=== PATIENT | male | born 1950 | race Caucasian/White ===

== ENCOUNTER 2018-03-13 09:45 | Outpatient (CLI) | payer OTHER, BC, MEDICARE ==
[~2018-03-13] VITALS: Ht 177.8 cm; Wt 122.7 kg
--- NOTE | ~2018-03-13 | HEMODYNAMI ---
PATIENT:CALLUM GARSIA MEDICAL RECORD: [id number] : 54 LOCATION:DA[facility]CAT ADMISSION DATE: 03/13/18 Generatedon:03/13/201811:56 Patient name: CALLUM GARSIA Patient #: [id number] SSN: : 1950 Date of study: 03/13/2018 Page: Of Hemodynamic Procedure Report Patient Data Patient Demographics Procedure consent was obtained First Name: CALLUM Gender: Male Last Name: SUN : 1950 Patient #: [id number] Age: 67 year(s) Race: Unknown Additional ID: [id number] Contact details [address]: [address] [place] [address] State: [place] City: [place] Zip code: [address] Admission Admission Data Admission Date: 03/13/2018 Admission Time: 11:00 Lab Results Lab Result Date: 03/13/2018 Lab Result Time: 0:00 Biochemistry Name Units Result Min Max BUN mg/dl 19 --(----)*- 7 18 Creatinine mg/dl 1 --(--*-)-- 0.6 1.3 CBC Name Units Result Min Max Hemoglobin g/dl 16.5 --(--*-)-- 13.5 17.5 Procedure Procedure Types Cath Procedure Diagnostic Procedure [facility] w/Coronaries FFR/IVUS Intra-Coronary IVUS Initial PCI Procedure Coronary Stent Coronary Stent Initial Procedure Description Procedure Date Procedure Date: 03/13/2018 Procedure Start Time: 11:34 Procedure End Time: 11:53 Procedure Staff Name Function Beto Garcia MD Performing Physician Shaquille Ye RT Monitor Josie Brennan RN Nurse Nakita Watson RT Scrub Procedure Data Cath Procedure Fluoroscopy Diagnostic fluoroscopy Total fluoroscopy Time: 6.7 time: 6.7 min min Diagnostic fluoroscopy Total fluoroscopy dose: dose: 1398 mGy 1398 mGy Contrast Material Contrast Material Type Amount (ml) Isovue 300 110 Entry Location Entry Primary Successful Side Size Upsize Upsize Entry Closure Adorno ccessful Closure Location (Fr) 1 (Fr) 2 (Fr) Remarks Device Remarks Radial Right 6 Fr Mechanical artery Short Compression Diagnostic catheters Device Type Used For End Catheter Placement DIAGNOSTIC Peculiar 110cm 5 LV Angiography Fr catheter ([id number]) Procedure Complications No complications Procedure Medications Medication Administration Route Dosage 0.9% NaCl I.V. 100 ml/hr Oxygen etCO2 Nasal cannula 2 l/min Lidocaine 2% added to field 20 Heparin Flush Bag added to field 2 bags (1000units/500ml NS) Radial Cocktail added to field 1 syringe (Verapomil 2mg/Nitro 400mcg/Heparin 1500units) Versed I.V. 2 mg Fentanyl I.V. 100 mcg Heparin Bolus I.V. 4000 units Versed I.V. 2 mg Versed I.V. 2 mg Hemodynamics Rest HGB: 16.5 (g/dl) Heart Rate: 74 (bpm) Snapshots Pre Cath Intra NCS Post Cath Vital Signs Time Heart Resp SPO2 etCO2 NIBP Rhythm Pain Sedation Rate (ipm) (%) (mmHg) (mmHg) Status Level (bpm) 11:20:36 68 22 98 34 106/62(77) NSR 0 (11) 10(A) , No pain 11:24:52 71 11 96 21.9 121/70(91) NSR 0 (11) 10(A) , No pain 11:29:11 79 11 97 20 118/75(89) NSR 0 (11) 10(A) , No pain 11:33:29 70 12 96 47.6 109/65(84) NSR 0 (11) 10(A) , No pain 11:37:41 80 10 98 30.7 109/71(92) NSR 0 (11) 10(A) , No pain 11:41:54 73 13 97 34.7 114/64(88) NSR 0 (11) 10(A) , No pain 11:46:11 81 13 98 41.5 96/62(89) NSR 0 (11) 9(A) , No pain 11:50:25 90 12 97 43.1 103/59(83) NSR 0 (11) 10(A) , No pain Medications Time Medication Route Dose Verified Delivered Reason Not es Effectiveness by by 11:19:30 0.9% NaCl I.V. 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 2 mg Beto Josie for sedation Jose Brennan RN 11:33:57 Fentanyl I.V. 100 mcg Beto Kwonyla for sedation Jose Brennan RN 11:38:41 Versed I.V. 2 mg Beto Josie for sedation Jose Brennan RN 11:43:55 Heparin Bolus I.V. 4000 Beto Josie for irma ified units Jose Brennan anticoagulation with Dr. MYLA Garcia 11:45:01 Versed I.V. 2 mg Beto Josie for sedation Jose Brennan RN Procedure Log Time Note 11:06:09 Time tracking: Regular hours (M-F 7:00 - 5:00) 11:06:13 Plan of Care:Hemodynamics will remain stable., Cardiac rhythm will remain stable., Comfort level will be maintained., Respiratory function will remain adequate., Patient/ family verbilizes understanding of procedure., Procedure tolerated without complication., Recovers from procedure without complications.. 11:06:18 Josie Brennan RN sent for patient. Start room use. 11:10:53 Patient received from Pre/Post Procedure Room to CCL 1 Alert and oriented. Tansferred to table in Supine position. 11:10:54 Warm blankets applied, and william hugger turned on for patient comfort. 11:10:54 Correct patient and procedure confirmed by team. 11:10:56 Signed procedure consent form obtained from patient. 11:10:57 ECG and BP/O2 sat monitors applied to patient. 11:10:58 Full Disclosure recording started 11:19:21 Vital chart was started 11:19:30 0.9% NaCl 100 ml/hr I.V. was administered by Josie Brennan RN; used for procedure; 11:19:37 Oxygen 2 l/min etCO2 Nasal cannula was administered by Josie Brennan RN; used for procedure; 11:19:43 Lidocaine 2% 20ml vial added to field was administered by Beto Garcia MD; for local anesthetic; 11:19:47 Heparin Flush Bag (1000units/500ml NS) 2 bags added to field was administered by Beto Garcia MD; used for procedure; 11:19:54 Radial Cocktail (Verapomil 2mg/Nitro 400mcg/Heparin 1500units) 1 syringe added to field was administered by Beto Garcia MD; used for procedure; 11:21:42 Baseline sample Acquired. 11:21:45 Rhythm: sinus rhythm 11:25:24 H&P Date Dictated: 03/12/2018 Within 30 days and on chart.. 11:25:26 Pre-procedure instructions explained to patient. 11:25:26 Pre-op teaching completed and patient verbalized understanding. 11:25:28 Family in waiting room. 11:25:29 Patient NPO since Midnight. 11:27:07 Is the patient allergic to Iodine/contrast media? No. 11:27:14 Is patient on blood thinner?Yes 11:27:16 ACC The patient was administered the following blood thiners within the last 24 hours: ACCPlavix 11:27:19 Patient diabetic? No. 11:27:21 ----Pre-sedation anethsthesia assessment.---- 11:27:24 Previous problem with sedation/anesthesia? No ? 11:27:26 Snore? Yes 11:27:27 Sleep apnea? No 11:27:29 Deviated septum? No 11:27:31 Opens mouth fully? Yes 11:27:32 Sticks out tongue? Yes 11:27:34 Airway obstruction? No ? 11:27:36 Dentures? No ? 11:27:43 Pre procedure: right dorsailis pedis pulse 1+ Palpable, but thready & weak; easily obliterated 11:27:47 Modified Jose's test Ulnar < 7 seconds 11:27:50 Patient pain scale 0/10 ?. 11:28:05 IV patent on arrival in left hand with 0.9% NaCl at 10ml/hr. 11:32:35 Lab Result : BUN 19 mg/dl 11:32:35 Lab Result : Hemoglobin 16.5 g/dl 11:32:35 Lab Result : Creatinine 1 mg/dl 11:32:39 Zero performed for pressure channel P1 11:32:46 Zero performed for pressure channel P1 11:32:58 Lab results completed and on chart. 11:33:01 Right Radial & Right Groin area was prepped with chlora-prep and draped in sterile fashion 11:33:02 Alarms reviewed by R. N. 11:33:03 Sharps counted by scrub and verified by R.N. 11:33:04 Physician arrived 11:33:05 --------ALL STOP TIME OUT------ 11:33:05 Final Timeout: patient, procedure, and site verified with staff and physician. All members of the team are in agreement. 11:33:07 Right Radial & Right Groin site verified by team. 11:33:10 Physical assessment completed. ASA score P 2 - A patient with mild systemic disease as per Beto Garcia MD. 11:33:14 Sedation plan: IV Moderate Sedation Medication:Versed, Fentanyl 11:33:18 Use device set Radial Dx or PCI 11:33:19 ACIST Syringe (63420) opened to sterile field. 11:33:19 Medline Cath Pack ([id number]) opened to sterile field. 11:33:20 Bag Decanter (2002) opened to sterile field. 11:33:20 DIAGNOSTIC WIRE .035 260cm J wire (199263) opened to sterile field. 11:33:21 ACIST Hand Control (81165) opened to sterile field. 11:33:21 ACIST Manifold (69531) opened to sterile field. 11:33:22 Tegaderm 4 x 4 (1626W) opened to sterile field. 11:33:22 MBrace Wrist Support ([id number]) opened to sterile field. 11:33:26 SHEATH 6FR Slender (83-5392) opened to sterile field. 11:33:50 Versed 2 mg I.V. was administered by Josie Brennan RN; for sedation; 11:33:57 Fentanyl 100 mcg I.V. was administered by Josie Brennan RN; for sedation; 11:34:00 Procedure started. 11:34:12 Local anesthetic to right radial artery with Lidocaine 2% by Beto Garcia MD.INITIAL ACCESS ONLY 11:34:21 A 6 Fr Short sheath was inserted into the Right Radial artery 11:34:32 A DIAGNOSTIC Peculiar 110cm 5 Fr catheter (288085) was advanced over the wire and used for LV Angiography. 11:34:35 LV angiography performed. 11:34:37 LV gram done using BETTENCOURT 11:34:47 LV hemodynamics recorded. 11:34:54 EF : 60 % 11:35:06 LCA angiography performed. 11:35:52 Catheter removed. 11:36:00 GUIDE 6FR XB 3.5 catheter ([id number]) opened to sterile field. 11:37:29 GUIDE 6FR AR 2.0 catheter (OE6BX89) opened to sterile field. 11:37:37 6 Fr AR 2 guide catheter was inserted over the wire 11:37:42 RCA angiography performed. 11:38:27 Catheter removed. 11:38:39 6 Fr XB 3.5 guide catheter was inserted over the wire 11:38:41 Versed 2 mg I.V. was administered by Josie Brennan RN; for sedation; 11:38:46 LCA angiography performed. 11:39:40 CHOICE PT Extra Support 182cm wire ([id number]) opened to sterile field. 11:39:46 INFLATOR Merit BasixCompak (TT2616) opened to sterile field. 11:43:23 CPTES wire advanced. 11:43:27 FFR/IVUS 11:43:27 IVUS catheter advanced over wire. 11:43:30 IVUS pass to Circ lesion performed. 11:43:46 Procedure type changed to Cath procedure, Diagnostic procedure, LHC, LHC w/Coronaries, FFR/IVUS, Intra-Coronary IVUS Initial, PCI procedure, Coronary Stent, Coronary Stent Initial 11:43:55 Heparin Bolus 4000 units I.V. was administered by Josie Brennan RN; for anticoagulation; verified with Dr. Garcia 11:45:01 Versed 2 mg I.V. was administered by Josie Brennan RN; for sedation; 11:49:04 IVUS catheter removed over wire. 11:50:14 Place stent Inflation Number: 1 A INTEGRITY RX 3.5 x 18 stent ([id number]) was prepped and advanced across the Mid CX. The stent was deployed at 15 PHILOMENA for 0:11 (min:sec). 11:50:30 Stent catheter was removed intact over wire. 11:50:32 Wire removed. 11:50:35 Guide catheter removed. 11:50:41 TR BAND Large ([id number]) opened to sterile field. 11:51:54 Sheath removed intact; hemostasis achieved with Mechanical Compression to the Right Radial artery. 11:51:56 Procedure ended.(Physican Out) 11:52:06 Fluoroscopy time 06.70 minutes. 11:52:12 Fluoroscopy dose: 1398 mGy 11:52:12 Flurop Dose total: 1398 11:52:14 Sharps counted by scrub and verified by R.N. 11:52:17 TR band inflated with 13cc of air. 11:52:19 Insertion/operative site no bleeding no hematoma. 11:52:41 Post procedure rhythm: sinus rhythm 11:52:49 Contrast amount:Isovue 300 110ml. 11:52:52 Procedure and supply charges have been captured, reviewed, submitted and are correct. 11:53:12 [place] Iliamna Eagleye IVUS Catheter (71999N) opened to sterile field. 11:53:40 Procedure Complication : No complications 11:53:42 Vital chart was stopped 11:53:43 See physician's report for complete and final results. 11:53:46 Report given to Pre/Post Procedure Room. 11:53:49 Patient transfered to Pre/Post Procedure Room with Stretcher. 11:53:51 Procedure ended. 11:53:51 Full Disclosure recording stopped 11:53:59 ACC-PCI Only Patient was given prescriptions, or instructed by Beto Garcia MD to start/continue the following medications upon discharge: Plavix 11:54:00 End room use (Document Last) Intervention Summary Intervention Notes Time ActionType Lesion and Equipment Action# Pressure Duration Attributes Used 11:50:14 Place stent Mid CX INTEGRITY RX 1 15 00:11 3.5 x 18 stent ([id number]) Device Usage Item Name Manufacture Quantity Catalog Number Hospital Part Current Mini mal Lot# / Charge Number Stock Stock Serial# Code [place] [address] 56400 568367 208015 059834 20 Syringe Medical (03037) Systems Inc Medline Cath Medline 1 [id number] 755260 92935 221027 5 Pack ([id number]) Bag Decanter Microtek 1 2001S 680792 93810 361067 5 () Medical Inc. DIAGNOSTIC [place] 1 248275 100215 645160 118980 30 WIRE .035 260cm J wire (948514) ACIST Hand Acist 1 24634 098040 209882 714844 5 Control Medical (68270) Systems Inc ACIST Acist 1 09252 937110 894394 460404 5 Manifold Medical (23163) Systems Inc Tegaderm 4 x 3M 1 1626W 727451 546553 209685 5 4 (1626W) MBrace Wrist Advanced 1 140-0250-00 940574 73915 622183 5 Support Vascular (525793874) Dynamics SHEATH 6FR Terumo 1 [id number] 967251 496143 313911 5 Slender (80-1060) DIAGNOSTIC Terumo 1 40-5013 023226 890041 960500 5 Peculiar 110cm 5 Fr catheter (485114) GUIDE 6FR XB Cardinal 1 [id number] 363465 476551 687195 2 3.5 catheter Health (02709973) GUIDE 6FR AR Medtronic 1 [id number] 690678 36293 752740 1 2.0 catheter (ZQ4QN74) CHOICE PT [place] 1 [id number] 865676 213540 842104 5 Extra Scientific Support 182cm wire ([id number]) INFLATOR Merit 1 IZ5457 042589 548567 904629 15 [facility] Medical BasixCompak (BS5913) INTEGRITY RX Medtronic 1 [id number] 825455 931240 338306 5 [id number] 3.5 x 18 stent ([id number]) TR BAND Terumo 1 [id number] 363939 958723 445012 40 Large ([id number]) [place] 1 71240C 301972 366920 509844 8 Iliamna Eagleye IVUS Catheter (80176S) Signature Audit [place] Stage Time Signature Unsigned Intra-Procedure 03/13/2018 Shaquille ARANGO(Arielle) 11:56:30 AM Signatures Monitor : Shaquille Ye RT Signature : Date : Time : [place] [address] [place] [address]
--- NOTE | ~2018-03-13 | OP ---
PATIENT NAME: CALLUM GARSIA MEDICAL RECORD: [id number] :54 LOCATION:D.CAT ADMISSION DATE: SURGEON: BRONSON WELSH MD DATE OF OPERATION: 03/13/2018 DATE OF SERVICE: 03/13/2018 PROCEDURES: 1. PTCA stent of left circumflex. 2. Intravascular ultrasound of left circumflex. 3. Left heart catheterization. 4. Selective coronary angiography. 5. Left ventriculogram. INDICATION: Angina and coronary artery disease. PROCEDURE IN DETAIL: After informed consent was obtained and after detailed explanation of risks, benefits as well as alternative therapies, the patient elected to proceed with angiogram and angioplasty. The right radial area was prepped and draped in normal sterile fashion. Right radial artery was cannulated via modified Seldinger technique with placement of 6-Faroese sheath. All catheters exchanged through this sheath. FINDINGS: Left ventriculogram was performed in standard 30-degree BETTENCOURT view, reveals good cardiac wall motion throughout all segments. Overall ejection fraction estimated at 60%. SELECTIVE CORONARY ANGIOGRAPHY: 1. Left main is with no significant angiographic disease. 2. Left anterior descending has long areas of bridging, but minimal fixed obstructive disease. 3. The left circumflex has greater than 80% stenosis confirmed by intravascular ultrasound proximally. 4. Right coronary has greater than 80% stenosis in the mid distal vessel. PTCA STENT OF THE LEFT CIRCUMFLEX: The stent used was a 3.5 x 18 mm Integrity. Result was 0% residual stenosis. OVERALL IMPRESSION: Successful percutaneous transluminal coronary angioplasty stent of the left circumflex going from over 80% initial stenosis to 0% residual. PLAN: PTCA stent of the RCA in the near future. TRANSINT:[id number] Voice Confirmation ID: [id number] DOCUMENT ID: [id number] BRONSON WELSH MD at 1228 CC: [id number] DICTATION DATE: 03/13/18 1154 TISSUE COORDINATOR: 03/13/18 1333 DEP CLI 03/13/18 [place] [id number]
[2018-03-13] MEDS ORDERED: PLAVIX75 MG PO (09:50)
[2018-03-13] MEDS ORDERED: PRINZIDE 20/12.1 TA1 PO (09:51)
[2018-03-13] MEDS ORDERED: NIASPAN500 MG PO (09:52)
[2018-03-13] MEDS ORDERED: GLUCOSAMINE HC500 MG PO (09:53)
[2018-03-13] MEDS ORDERED: FISH OIL 1,0001 CA1 PO (09:53)
[2018-03-13 10:04] VITALS: BP 127/74; Ht 177.8 cm; Wt 122.7 kg
[2018-03-13 10:20] LABS: BASOPHILS 0.2 % (0-2); CALC OSMOLALITY 279 mosm/kg (275-300); CALCIUM 9.9 mg/dL (8.5-10.1); CARBON DIOXIDE 27.9 mmol/L (21.0-32.0); CHLORIDE - SERUM 101 mmol/L (98-107); EOSINOPHILS 3.3 % (0-7); GLUCOSE 127 mg/dL (74-106); HEMATOCRIT 47.4 % (42.0-54.0); HEMOGLOBIN 16.5 g/dL (13.5-17.5); IMMATURE GRANULOCYTES 0.2 % (0-5); LYMPHOCYTES 23.7 % (15-50); MCH 31.4 pg (26.0-34.0); MCHC 34.8 g/dL (31.0-37.0); MCV 90.1 fL (80.0-100.0); MEAN PLATELET VOLUME 9.7 fL (7.4-10.4); MONOCYTES 8.7 % (2-11); NEUTROPHILS 63.9 % (40-80); PLATELET COUNT 215 10x3/uL (130-400); POTASSIUM - SERUM 4.1 mmol/L (3.5-5.1); RBC 5.26 10x6/uL (4.20-6.10); RDW 13.7 % (11.5-14.5); SODIUM 138 mmol/L (136-145); UREA NITROGEN 19 mg/dL (7-18); WBC 8.2 10x3/uL (4.8-10.8); eGFR NON AFRICAN AMERICAN 80 mL/min (90-120)
[2018-03-13] MEDS ORDERED: BAYER CHEWABLE81 MG PO (12:10)
== END 2018-03-13 16:00 ==
LOC: D.CATH 09:45
PROVIDERS: Internal Medicine Interventional Cardiology
DX: I25.119 Atherosclerotic heart disease of native coronary artery with unspecified angina pectoris (principal); Z01.812 Encounter for preprocedural laboratory examination

== ENCOUNTER → 2018-03-16 06:56 | Outpatient (CLI) | payer OTHER, BC ==
[~2018-03-16] VITALS: Ht 177.8 cm; Wt 122.7 kg
--- NOTE | ~2018-03-16 | HP ---
PATIENT: CALLUM AMARAL MEDICAL RECORD: [id number] ACCOUNT: [id number] LOCATION:EVAN : 54 ADMISSION DATE: 03/16/18 PCP: GAIL POZO HISTORY AND PHYSICAL EXAMINATION ADMITTING DIAGNOSES: 1. Angina. 2. Coronary artery disease. 3. PTCA and stent to LAD with concomitant disease of RCA. 4. Hypertension. 5. Hyperlipidemia. HISTORY OF PRESENT ILLNESS: Mr. Amaral presents with anginal symptomatology, found to have 2-vessel coronary artery disease. Underwent successful PTCA and stent of the LAD. He is now brought back for PTCA and stent of the RCA. REVIEW OF SYSTEMS: The patient reports easy bruising but reports no swollen glands. The patient reports no fever, no night sweats, no significant weight gain, no significant weight loss. No significant exercise tolerance. The patient reports no dry eyes, no irritation, no vision change. Patient reports no difficulty hearing and no ear pain. Patient reports no frequent nose bleeds or nose and sinus problems. Patient reports on arm pain on exertion. No shortness of breath while lying down. No history of heart murmur. Patient reports no cough, no wheezing or coughing up blood. Patient reports no abdominal pain, no vomiting. Normal appetite. No diarrhea and not vomiting blood. No nausea and no constipation. Patient reports no incontinence. No difficulty urinating. No hematuria. No increased frequency. Patient reports no muscle aches. No weakness, no arthralgias, no back pain. No swelling of the extremities. Patient reports no abnormal mole, no jaundice, no rashes. Reports no loss of consciousness. No weakness and no numbness. No seizures, dizziness, or headaches. The patient reports no depression, no sleep disturbance, feeling safe in a relationship and no alcohol abuse. Patient reports on fatigue. Reports no runny nose or sinus pressure. No itching, no hives, and no frequent sneezing. PHYSICAL EXAMINATION: GENERAL APPEARANCE: Well-nourished, well-developed, appears stated age. Level of distress, comfortable. PSYCHIATRIC: Mental status, alert, normal affect. Orientation, oriented to time, place and person. EYES: Lids and conjunctiva, noninjected. No discharge, no pallor. ENT: Lips, teeth, gums, normal dentition. Oropharynx, no cyanosis, no pallor. NECK: Carotid arteries, bilateral normal upstroke, no bruits, no thrills. JUGULAR VEINS: No jugular venous pressure or distention. CERVICAL LYMPH NODES: Nontender, nonenlarged. THYROID: Not enlarged. Nontender. No nodules. LUNGS: Respiratory effort, unlabored. CHEST: Normal curvature. No thoracic deformity. No chest wall tenderness. Percussion, resonant. Auscultation, clear. No wheezes, no rales, no rhonchi. CARDIOVASCULAR: Precordial exam, nondisplaced. No heaves or pericardial thrills. Rate and rhythm, regular. Heart sounds, normal S1, normal S2. No S3, no gallop, no rub. Systolic murmur, not heard. Diastolic murmur, not heard. EXTREMITIES: No cyanosis, no edema. Peripheral pulses, full and equal in all extremities, except as noted. No bruits appreciated. ABDOMEN: Soft, nondistended. Normal aorta. No bruit. Nontender. No masses. HISTORY AND PHYSICAL [id number] AMARAL,CALLUM Liver, nontender, no hepatomegaly. Spleen, nontender, no splenomegaly. MUSCULOSKELETAL: No joint tenderness. No joint swelling. No erythema. NEUROLOGICAL: Normal gait, normal strength, normal tone. SKIN: Warm and dry. OVERALL IMPRESSION: Anginal symptomatology with significant disease of the RCA. We will proceed with transcatheter revascularization of the RCA. TRANSINT:[id number] Voice Confirmation ID: [id number] DOCUMENT ID: [id number] BRONSON WELSH MD at 0941 CC: [id number] DICTATION DATE: 03/16/18913 ENVIRONMENTAL ADVISOR: 03/16/18922 [facility] [address] [place] [address]
--- NOTE | ~2018-03-16 | HEMODYNAMI ---
PATIENT:CALLUM GARSIA MEDICAL RECORD: [id number] : 54 LOCATION:D.CAT ADMISSION DATE: 03/16/18 Generatedon:03/16/20189:22 Patient name: CALLUM GARSIA Patient #: [id number] SSN: : 1950 Date of study: 03/16/2018 Page: Of Hemodynamic Procedure Report Patient Data Patient Demographics Procedure consent was obtained First Name: CALLUM Gender: Male Last Name: SUN : 1950 Patient #: [id number] Age: 67 year(s) Race: Unknown Additional ID: [id number] Contact details [address]: [address] [place] [address] State: [place] City: [place] Zip code: [address] Admission Admission Data Admission Date: 03/16/2018 Admission Time: 6:56 Weight (lbs.): 271.17 Weight (kg.): 123 Lab Results Lab Result Date: 03/16/2018 Lab Result Time: 0:00 Biochemistry Name Units Result Min Max BUN mg/dl 19 --(----)*- 7 18 Creatinine mg/dl 1.2 --(---*)-- 0.6 1.3 CBC Name Units Result Min Max Hemoglobin g/dl 17.3 --(---*)-- 13.5 17.5 Platelets 10^3/l 224 --(-*--)-- 130 400 Procedure Procedure Types Cath Procedure PCI Procedure Coronary Stent Coronary Stent Initial Procedure Description Procedure Date Procedure Date: 03/16/2018 Procedure Start Time: 9:06 Procedure End Time: 9:19 Procedure Staff Name Function Beto Garcia MD Performing Physician Jose Siddiqui RT Monitor Feroz Flor RN Nurse Shaquille Ye RT Scrub Procedure Data Cath Procedure Fluoroscopy Diagnostic fluoroscopy Total fluoroscopy Time: 2.2 time: 2.2 min min Diagnostic fluoroscopy Total fluoroscopy dose: 138 dose: 138 mGy mGy Contrast Material Contrast Material Type Amount (ml) Isovue 300 61 Entry Location Entry Primary Successful Side Size Upsize Upsize Entry Closure Succes sful Closure Location (Fr) 1 (Fr) 2 (Fr) Remarks Device Remarks Femoral Right 6 Fr Exoseal artery Short Estimated blood loss: 10 ml Procedure Complications No complications Procedure Medications Medication Administration Route Dosage Oxygen etCO2 Nasal cannula 2 l/min Heparin Flush Bag added to field 2 bags (1000units/500ml NS) 0.9% NaCl I.V. 100 ml/hr Fentanyl I.V. 50 mcg Versed I.V. 1 mg Fentanyl I.V. 50 mcg Versed I.V. 1 mg Heparin Bolus I.V. 4000 units Fentanyl I.V. 50 mcg Fentanyl I.V. 50 mcg Hemodynamics Rest HGB: 17.3 (g/dl) Heart Rate: 80 (bpm) Snapshots Pre Cath Intra NCS Post Cath Vital Signs Time Heart Resp SPO2 etCO2 NIBP (mmHg) Rhythm Pain Sedation Rate (ipm) (%) (mmHg) Status Level (bpm) 8:30:49 73 17 97 0 123/74(100) NSR 0 (11) 10(A) , No pain 8:35:03 73 17 95 0 119/80(91) NSR 0 (11) 10(A) , No pain 8:39:17 73 17 94 0 118/78(95) NSR 0 (11) 10(A) , No pain 8:43:31 70 17 97 8.9 122/73(87) NSR 0 (11) 10(A) , No pain 8:47:45 73 16 97 7.4 120/73(91) NSR 0 (11) 10(A) , No pain 8:52:01 70 16 97 11.9 118/74(91) NSR 0 (11) 10(A) , No pain 8:56:15 71 16 97 14.9 114/70(90) NSR 0 (11) 10(A) , No pain 9:00:27 69 16 97 12.6 115/76(90) NSR 0 (11) 10(A) , No pain 9:04:39 70 16 96 17.1 126/75(90) NSR 0 (11) 10(A) , No pain 9:08:52 66 16 96 16.4 116/70(92) NSR 0 (11) 9(A) , No pain 9:13:07 65 16 98 14.1 109/70(85) NSR 0 (11) 9(A) , No pain Medications Time Medication Route Dose Verified Delivered Reason Notes Effectiveness by by 8:40:40 Oxygen etCO2 2 Beto Mclainy Per physician Nasal l/min Jose Flor RN cannula 8:40:49 Heparin Flush added 2 Beto Redman used for Bag to bags Jose Flor RN procedure (1000units/500ml field NS) 8:40:58 0.9% NaCl I.V. 100 Beto Feroz Per physician ml/hr Jose Flor RN 9:03:18 Fentanyl I.V. 50 Beto Feroz for sedation mcg Jose Flor RN 9:03:31 Versed I.V. 1 mg Beto Feroz for sedation Jose Flor RN 9:04:57 Fentanyl I.V. 50 Beto Feroz for sedation mcg Jose Flor RN 9:05:03 Versed I.V. 1 mg Beto Feroz for sedation Jose Flor RN 9:08:24 Heparin Bolus I.V. 4000 Beto Feroz for units Jose Flor RN anticoagulation 9:08:28 Fentanyl I.V. 50 Beto Feroz for sedation mcg Jose Flor RN 9:10:32 Fentanyl I.V. 50 Beto Feroz for sedation mcg Jose Flor RN Procedure Log Time Note 8:15:07 Shaquille Ye RT(R) sent for patient. Start room use. 8:21:09 Time tracking: Regular hours (M-F 7:00 - 5:00) 8:21:12 Plan of Care:Hemodynamics will remain stable., Cardiac rhythm will remain stable., Comfort level will be maintained., Respiratory function will remain adequate., Patient/ family verbilizes understanding of procedure., Procedure tolerated without complication., Recovers from procedure without complications.. 8:27:56 Patient received from Pre/Post Procedure Room to CCL 3 Alert and oriented. Tansferred to table in Supine position. 8:27:57 Warm blankets applied, and william hugger turned on for patient comfort. 8:27:58 Correct patient and procedure confirmed by team. 8:27:59 Signed procedure consent form obtained from patient. 8:28:00 ECG and BP/O2 sat monitors applied to patient. 8:29:40 Baseline sample Acquired. 8:29:40 Vital chart was started 8:29:43 Rhythm: sinus rhythm 8:29:45 Full Disclosure recording started 8:35:29 H&P Date Dictated: 03/16/2018 New H&P dictated by physician.. 8:35:30 Pre-procedure instructions explained to patient. 8:35:30 Pre-op teaching completed and patient verbalized understanding. 8:35:32 Family in patients room. 8:35:35 Patient NPO since Midnight. 8:35:37 Is the patient allergic to Iodine/contrast media? No. 8:35:39 Is patient on blood thinner?Yes 8:35:42 ACC The patient was administered the following blood thiners within the last 24 hours: ACCPlavix 8:35:44 Patient diabetic? Yes. 8:35:51 If diabetic: On Metformin? No 8:35:54 Previous problem with sedation/anesthesia? No ? 8:35:55 Snore? Yes 8:35:56 Sleep apnea? No 8:35:57 Deviated septum? No 8:35:58 Opens mouth fully? Yes 8:35:59 Sticks out tongue? Yes 8:36:00 Airway obstruction? No ? 8:36:02 Dentures? No ? 8:36:05 Pre procedure: right dorsailis pedis pulse 1+ Palpable, but thready & weak; easily obliterated 8:36:09 Patient pain scale 0/10 ?. 8:36:14 IV patent on arrival in left forearm with 0.9% NaCl at KVO. 8:36:16 Lab results completed and on chart. 8:36:20 Right groin area was prepped with chlora-prep and draped in sterile fashion 8:36:22 Alarms reviewed by R. N. 8:36:22 Sharps counted by scrub and verified by R.N. 8:36:25 Use device set Radial Dx or PCI 8:36:28 Use device set TAUTH PCI 8:36:33 Tegaderm 4 x 4 ([id number]) opened to sterile field. 8:36:34 ACIST Manifold (24607) opened to sterile field. 8:36:34 ACIST Hand Control (06842) opened to sterile field. 8:36:36 ACIST Syringe (07113) opened to sterile field. 8:36:36 Medline Cath Pack ([id number]) opened to sterile field. 8:36:36 Bag Decanter (2002S) opened to sterile field. 8:36:37 DIAGNOSTIC WIRE .035 260cm J wire (305941) opened to sterile field. 8:36:40 INFLATOR Merit BasixCompak (GK7914) opened to sterile field. 8:36:44 CHOICE PT Extra Support 182cm wire ([id number]) opened to sterile field. 8:36:47 SHEATH 6FR [place] (QCC237) opened to sterile field. 8:37:06 GUIDE 6FR HS II SH catheter ([id number]) opened to sterile field. 8:40:40 Oxygen 2 l/min etCO2 Nasal cannula was administered by Feroz Flor RN; Per physician; 8:40:49 Heparin Flush Bag (1000units/500ml NS) 2 bags added to field was administered by Feroz Flor RN; used for procedure; 8:40:58 0.9% NaCl 100 ml/hr I.V. was administered by Feroz Flor RN; Per physician; 8:42:52 Zero performed for pressure channel P1 8:47:30 Baseline sample Acquired. 9:03:00 --------ALL STOP TIME OUT------ 9:03:01 Final Timeout: patient, procedure, and site verified with staff and physician. All members of the team are in agreement. 9:03:04 Right groin site verified by team. 9:03:07 Physical assessment completed. ASA score P 2 - A patient with mild systemic disease as per Beto Garcia MD. 9:03:09 Sedation plan: IV Moderate Sedation Medication:Versed, Fentanyl 9:03:18 Fentanyl 50 mcg I.V. was administered by Feroz Flor RN; for sedation; 9:03:31 Versed 1 mg I.V. was administered by Feroz Flor RN; for sedation; 9:04:57 Fentanyl 50 mcg I.V. was administered by Feroz Flor RN; for sedation; 9:05:03 Versed 1 mg I.V. was administered by Feroz Flor RN; for sedation; 9:06:19 Procedure started. 9:06:24 Local anesthetic to right femoral artery with Lidocaine 2% by Beto Garcia MD.INITIAL ACCESS ONLY 9:06:47 A 6 Fr Short sheath was inserted into the Right Femoral artery 9:07:00 6 Fr HS 2 SH guide catheter was inserted over the wire 9:07:57 Guide Catheter removed. damaged. 9:08:18 GUIDE 6FR HS II SH catheter ([id number]) opened to sterile field. 9:08:24 Heparin Bolus 4000 units I.V. was administered by Feroz Flor RN; for anticoagulation; 9:08:25 6 Fr HS 2 SH guide catheter was inserted over the wire 9:08:28 Fentanyl 50 mcg I.V. was administered by Feroz Flor RN; for sedation; 9::26 CPTXS wire advanced. 9:10:13 Wire advanced across lesion. 9:10:32 Fentanyl 50 mcg I.V. was administered by Feroz Flor RN; for sedation; 9:12:03 Place stent Inflation Number: 1 A INTEGRITY RX 2.5 x 14 stent ([id number]) was prepped and advanced across the Dist RCA. The stent was deployed at 15 PHILOMENA for 0:10 (min:sec). 9:12:06 EXOSEAL 6Fr (EX600) opened to sterile field. 9:12:10 Stent catheter was removed intact over wire. 9:12:11 Wire removed. 9:12:12 Guide catheter removed. 9:12:22 Sheath removed intact; hemostasis achieved with Exoseal to the Right Femoral artery. 9:12:25 Procedure ended.(Physican Out) 9:13:34 Fluoroscopy time 02.20 minutes. 9:13:39 Flurop Dose total: 138 9:13:39 Fluoroscopy dose: 138 mGy 9:13:52 Contrast amount:Isovue 300 61ml. 9:14:11 Sharps counted by scrub and verified by R.N. 9:14:13 Insertion/operative site no bleeding no hematoma. 9:14:18 Post-op/insertion site Right Femoral artery dressed using a 4 x 4 and Tegaderm. 9:14:20 Post Procedure Pulses reassessed and unchanged 9:14:23 Post-procedure physical assessment completed. ASA score P 2 - A patient with mild systemic disease as per Beto Garcia MD. 9:14:25 Post procedure rhythm: unchanged. 9:14:28 Estimated blood loss: 10 ml 9:14:29 Post procedure instruction explained to patient.Patient verbalizes understanding. 9:14:30 Patient needs reinforcement of post procedure teaching. 9:14:36 Procedure and supply charges have been captured, reviewed, submitted and are correct. 9:14:39 Procedure Complication : No complications 9:15:53 Patient Weight : 271.17 lbs 9:16:18 Lab Result : BUN 19 mg/dl 9:16:18 Lab Result : Creatinine 1.2 mg/dl 9:16:18 Lab Result : Hemoglobin 17.3 g/dl 9:16:18 Hemodynamic formulas in Rest were re-calculated based on hemoglobin value from 03/16/2018 12:00:00 AM 9:16:18 Lab Result : Platelets 224 10^3/l 9:16:24 Vital chart was stopped 9:16:24 See physician's report for complete and final results. 9:19:51 Report given to Pre/Post Procedure Room. 9:19:54 Patient transfered to Pre/Post Procedure Room with Stretcher. 9:19:56 Procedure ended. 9:19:56 Full Disclosure recording stopped 9:20:25 End room use (Document Last) Intervention Summary Intervention Notes Time ActionType Lesion and Equipment Action# Pressure Duration Attributes Used 9:12:03 Place stent Dist RCA INTEGRITY RX 1 15 00:10 2.5 x 14 stent ([id number]) Device Usage Item Name Manufacture Quantity Catalog Number Hospital Part Current Mini mal Lot# / Charge Number Stock Stock Serial# Code Tegaderm 4 x 3M 1 [id number] 619267 217182 5 4 (1626W) ACIST Acist 1 15454 768715 610788 765119 5 Manifold Medical (02230) Systems Inc ACIST Hand Acist 1 06099 338695 545441 348385 5 Control Medical (05507) Systems Inc ACIST Acist 1 82207 723065 307949 859370 20 Syringe Medical (61380) Systems Inc Medline Cath Medline 1 [id number] 262791 50060 899120 5 Pack ([id number]) Bag Decanter Microtek 1 2001S 012712 40352 174310 5 () Medical Inc. DIAGNOSTIC [place] 1 357489 968848 016083 159272 30 WIRE .035 260cm J wire (005190) INFLATOR Merit 1 KG0422 377090 637525 303900 15 [facility] Medical BasixCompak (IB8210) CHOICE PT [place] 1 [id number] 765839 629297 092385 5 Extra Scientific Support 182cm wire ([id number]) SHEATH 6FR Terumo 1 MUM967 966664 981136 126574 40 [place] (BHP301) GUIDE 6FR HS Medtronic 2 [id number] 531845 38725 372516 1 II SH catheter ([id number]) INTEGRITY RX Medtronic 1 [id number] 262007 615354 277819 5 [id number] 2.5 x 14 stent ([id number]) EXOSEAL 6Fr Cardinal 1 EX600 399927 817602 196153 10 (EX600) Health Signature Audit [place] Stage Time Signature Unsigned Intra-Procedure 03/16/2018 Jose Siddiqui 9:21:58 AM RT(R) Signatures Monitor : Jose Siddiqui RT Signature : Date : Time : [place] [id number] [facility] [place] [address]
--- NOTE | ~2018-03-16 | OP ---
PATIENT NAME: CALLUM GARSIA MEDICAL RECORD: [id number] :54 LOCATION:D.CAT ADMISSION DATE: SURGEON: BRONSON WELSH MD DATE OF OPERATION: 03/16/2018 PROCEDURES: 1. PTCA and stent of RCA. 2. Selective coronary angiography. INDICATION: Angina and coronary artery disease. PROCEDURE PERFORMED: After informed consent was obtained and after detailed explanation of risks, benefits as well as alternative therapies, the patient elected to proceed with angiogram and angioplasty. The right femoral area was prepped and draped in normal sterile fashion. Right femoral artery was cannulated via modified Seldinger technique with placement of 6-Ecuadorean sheath. All catheters exchanged through this sheath. FINDINGS: The right coronary artery has 80% to 90% stenosis in the distal vessel. This was addressed with a 2.5 x 15-mm Integrity stent. Result was 0% residual stenosis. OVERALL IMPRESSION: Successful PTCA and stent of the RCA going from 80% to 90% initial stenosis to 0% residual. TRANSINT:[id number] Voice Confirmation ID: [id number] DOCUMENT ID: [id number] BRONSON WELSH MD at 1324 CC: [id number] DICTATION DATE: 03/16/18 0916 [employer] T[employer]: 03/16/18 1103 [facility] CLI 03/16/18 [place] [id number] [place] [address]
[~2018-03-16 06:56] MED LIST: BAYER CHEWABLE81 MG PO; FISH OIL 1,0001 CA1 PO; GLUCOSAMINE HC500 MG PO; NIASPAN500 MG PO; PLAVIX75 MG PO; PRINZIDE 20/12.1 TA1 PO
[2018-03-16 07:29] VITALS: BP 136/85; Ht 177.8 cm; Wt 122.7 kg
[2018-03-16 07:31] LABS: BASOPHILS 0.2 % (0-2); EOSINOPHILS 2.8 % (0-7); HEMATOCRIT 49.4 % (42.0-54.0); HEMOGLOBIN 17.3 g/dL (13.5-17.5); IMMATURE GRANULOCYTES 0.5 % (0-5); LYMPHOCYTES 21.3 % (15-50); MCH 31.4 pg (26.0-34.0); MCV 89.7 fL (80.0-100.0); MEAN PLATELET VOLUME 9.8 fL (7.4-10.4); MONOCYTES 8.4 % (2-11); NEUTROPHILS 66.8 % (40-80); PLATELET COUNT 224 10x3/uL (130-400); RBC 5.51 10x6/uL (4.20-6.10); RDW 13.7 % (11.5-14.5); WBC 9.8 10x3/uL (4.8-10.8)
[2018-03-16 07:52] LABS: ANION GAP 18.4 mmol/L (8-16); CALCIUM 9.5 mg/dL (8.5-10.1); CARBON DIOXIDE 24.7 mmol/L (21.0-32.0); CREATININE - SERUM 1.2 mg/dL (0.6-1.3); POTASSIUM - SERUM 4.1 mmol/L (3.5-5.1)
== END | disposition home or self-care (01) ==
LOC: D.CATH 06:56
PROVIDERS: Internal Medicine Interventional Cardiology
DX: I25.119 Atherosclerotic heart disease of native coronary artery with unspecified angina pectoris (principal); Z95.5 Presence of coronary angioplasty implant and graft; I10 Essential (primary) hypertension; E78.5 Hyperlipidemia, unspecified; Z01.812 Encounter for preprocedural laboratory examination